=== PATIENT | female | born 1965 | race Caucasian/White ===

== ENCOUNTER 2017-07-14 17:00 | Observation (INO) | payer MEDICARE, OTHER ==
[~2017-07-14] VITALS: Ht 165.1 cm; Wt 80.0 kg
[2017-07-14 17:15] VITALS: BP 130/93; PULSE 81; RESP 16; TEMP 98; O2SAT 99
[2017-07-14] MEDS ORDERED: LEVO200T4 PO (17:25)
--- NOTE | 2017-07-14 17:38 | PD ---
HPI Chief Complaint: Chest Pain Time Seen by Provider: 17:38 Travel History International Travel<30 days: No Contact w/Intl Traveler<30days: No Traveled to known affect area: No History of Present Illness HPI 51-year-old female arrives via EMS with left-sided chest pain that radiated into her left arm and neck that started abruptly while at work. She said the pain was a 10 out of 10 and she has been administered aspirin and 3 doses of sublingual nitro with relief of her chest pain. She says her chest pain is now 0 out of 10. She did have shortness of breath with the chest pain. No shortness of breath now. She has never had chest pain like this before. She said the chest pain was in-stent like "she was punched in the back." Onset today. Lasted greater than 15 minutes. Relieved by nitroglycerin. Reports marijuana use occasionally. Denies other illicit drug use. Reports tobacco use. Primary CARE providers Dr. Cook. History of hypothyroidism and has not taken her levothyroxine in 10 days secondary to her doctor stopping not prescribing her medication secondary to her not having up-to-date labs. History of stress test 10 years ago. Allergies to vancomycin, cephalosporin and IV dye. Has no other medical complaints. No other modifying factors or associated signs and symptoms PFSH Past Medical History Chest Pain: Yes Diminished Hearing: No GERD: Yes Hypertension: Yes Kidney Stones: Yes Thyroid Disease: Yes ?: Not Past Surgical History Cholecystectomy: Yes Hysterectomy: Yes Other Surgery: Yes (OOPHERECTOMY, CERVICAL RIB RESECTION X 2, ) Social History Alcohol Use: Yes (OCC) Tobacco Use: Yes (1/2 PPD) Substance Use: No Allergies-Medications (Allergen,Severity, Reaction): Coded Allergies: Cephalosporins (Verified Allergy, Intermediate, HIVES, 07/14/17) vancomycin (Verified Allergy, Intermediate, RASH, 07/14/17) Uncoded Allergies: IVP DYE (Allergy, Severe, Anaphylaxis, 07/14/17) Reported Meds & Prescriptions Reported Meds & Active Scripts Active Reported Levothyroxine (Levothyroxine Sodium) 200 Mcg Tab 225 Mcg PO DAILY Review of Systems Except as stated in HPI: all other systems reviewed are Neg Physical Exam Narrative GENERAL: Well-nourished, well-developed femur patient, in no acute distress SKIN: Warm and dry. HEAD: Atraumatic. Normocephalic. EYES: Pupils equal and round. No scleral icterus. No injection or drainage. ENT: Mucosa pink and moist. NECK: Trachea midline. CHEST: No reproducible chest wall tenderness; no crepitance or deformity. No retractions or use of accessory muscles. CARDIOVASCULAR: Regular rate and rhythm. No murmur appreciated. RESPIRATORY: No accessory muscle use. Clear to auscultation. Breath sounds equal bilaterally. No retractions or tachypnea. GASTROINTESTINAL: Abdomen soft, non-tender, nondistended. Hepatic and splenic margins not palpable. Bowel sounds are active 4 quadrants. MUSCULOSKELETAL: No obvious deformities. No clubbing. No cyanosis. No edema. NEUROLOGICAL: Awake and alert. Oriented 3. No obvious cranial nerve deficits. Motor grossly within normal limits. Normal speech. Moves all extremities. 5/5 strength to all extremities. PSYCHIATRIC: Appropriate mood and affect; insight and judgment normal. Data Data Last Documented VS Vital Signs Date Time Temp Pulse Resp B/P (MAP) Pulse Ox O2 Delivery O2 Flow Rate FiO2 07/14/17 18:43 84 17 177/104 (128) 99 Nasal Cannula 2.00 07/14/17 17:15 98.0 Orders Orders Electrocardiogram (07/14/17 ) Electrocardiogram (07/14/17 17:37) Basic Metabolic Panel (Bmp) (07/14/17 17:37) Ckmb (Isoenzyme) Profile (07/14/17 17:37) Complete Blood Count With Diff (07/14/17 17:37) Magnesium (Mg) (07/14/17 17:37) Prothrombin Time / Inr (Pt) (07/14/17 17:37) Act Partial Throm Time (Ptt) (07/14/17 17:37) Troponin I (07/14/17 17:37) Ecg Monitoring (07/14/17 17:37) Bilateral Bp Monitoring (07/14/17 17:37) Iv Access Insert/Monitor (07/14/17 17:37) Oximetry (07/14/17 17:37) Oxygen Administration (07/14/17 17:37) Sodium Chloride 0.9% Flush (Ns Flush) (07/14/17 17:45) Chest, Pa & Lat (07/14/17 17:37) Drug Screen, Random Urine (07/14/17 17:52) CKMB (07/14/17 17:45) CKMB% (07/14/17 17:45) Admit Order (Ed Use Only) (07/14/17 18:38) Activity Bed Rest With Brp (07/14/17 18:38) Vital Signs (Adult) Q4H (07/14/17 18:38) Cardiac Rhythm .As Directed (07/14/17 18:38) Notify Dr: Other .PRN (07/14/17 18:38) Notify DrKim Parameters (07/14/17 18:38) Resp Oxygen Nasal Cannula (07/14/17 ) Ckmb (Isoenzyme) Profile (07/14/17 18:38) Ckmb (Isoenzyme) Profile (07/14/17 21:38) Troponin I (07/14/17 18:38) Troponin I (07/14/17 21:38) Electrocardiogram (07/14/17 18:38) Electrocardiogram (07/14/17 21:38) ^ Obtain (07/14/17 18:38) Sodium Chloride 0.9% Flush (Ns Flush) (07/14/17 18:45) Sodium Chloride 0.9% Flush (Ns Flush) (07/14/17 21:00) Window Unit Air Conditioning Mechanic / Telemetry DEVYN.Q8H (07/14/17 18:38) Morphine Inj (Morphine Inj) (07/14/17 18:45) Ondansetron Inj (Zofran Inj) (07/14/17 18:45) Labs Laboratory Tests Test 07/14/17 17:45 07/14/17 18:26 White Blood Count 9.8 TH/MM3 Red Blood Count 4.40 MIL/MM3 Hemoglobin 14.3 GM/DL Hematocrit 42.1 % Mean Corpuscular Volume 95.6 FL Mean Corpuscular Hemoglobin 32.4 PG Mean Corpuscular Hemoglobin Concent 33.9 % Red Cell Distribution Width 13.3 % Platelet Count 375 TH/MM3 Mean Platelet Volume 7.3 FL Neutrophils (%) (Auto) 54.4 % Lymphocytes (%) (Auto) 33.8 % Monocytes (%) (Auto) 8.1 % Eosinophils (%) (Auto) 2.5 % Basophils (%) (Auto) 1.2 % Neutrophils # (Auto) 5.4 TH/MM3 Lymphocytes # (Auto) 3.3 TH/MM3 Monocytes # (Auto) 0.8 TH/MM3 Eosinophils # (Auto) 0.2 TH/MM3 Basophils # (Auto) 0.1 TH/MM3 CBC Comment DIFF FINAL Differential Comment Prothrombin Time 10.5 SEC Prothromb Time International Ratio 1.0 RATIO Activated Partial Thromboplast Time 21.2 SEC Blood Urea Nitrogen 11 MG/DL Creatinine 1.18 MG/DL Random Glucose 88 MG/DL Calcium Level 7.8 MG/DL Magnesium Level 1.9 MG/DL Sodium Level 141 MEQ/L Potassium Level 4.1 MEQ/L Chloride Level 108 MEQ/L Carbon Dioxide Level 24.1 MEQ/L Anion Gap 9 MEQ/L Estimat Glomerular Filtration Rate 48 ML/MIN Total Creatine Kinase 197 U/L Creatine Kinase MB 2.7 NG/ML Creatine Kinase MB % 1.4 % Troponin I 0.03 NG/ML MDM Medical Decision Making Medical Screen Exam Complete: Yes Emergency Medical Condition: Yes Medical Record Reviewed: Yes Differential Diagnosis Atypical chest pain, [place], ACS, musculoskeletal chest pain, pleuritic chest pain Narrative Course 51-year-old female with chest pain that is non-reproducible on physical exam. Abrupt onset while at work today. Arrived via EMS. Was given nitroglycerin sublingual 3 and aspirin on route with relief of chest pain. Patient placed on cardiopulmonary monitor and oxygen administration. IV, CBC, BMP, troponin, CK-MB, magnesium, EKG, chest x-ray ordered. EKG reviewed by Dr. Navarro. 1840: CBC unremarkable. Coags unremarkable. Creatinine 1.18. GFR 48. Total CK 197. Troponin 0.03. Magnesium 1.9. Dr. Meraz reviewed labs, evaluated patient and recommends chest pain center admission. Patient admitted to chest pain center for observation to rule out cardiac etiology. Chest pain admission orders entered. Toxicology pending. Morphine ordered for onset of chest pain again. Physician Communication Physician Communication [facility] Diagnosis Primary Impression: Chest pain Qualified Codes: R07.9 - Chest pain, unspecified Admitting Information Admitting Physician Requests: Observation Suly Headley [facility] Jul 14, 2017 17:38
[2017-07-14 17:44] VITALS: O2SAT 100
[2017-07-14] MEDS ORDERED: SODIUM CHLORIDE 0.9% FLUSH 10 ML FLUSH IVF PRN (17:45)
[2017-07-14 18:07] LABS: AUTOMATED NEUTROPHIL # 5.4 TH/MM3 (1.8-7.7); BASOPHIL # 0.1 TH/MM3 (0-0.2); BASOPHIL % 1.2 % (0.0-2.0); EOSINOPHIL # 0.2 TH/MM3 (0-0.4); EOSINOPHIL % 2.5 % (0.0-4.0); HEMATOCRIT 42.1 % (35.0-46.0); HEMOGLOBIN 14.3 GM/DL (11.6-15.3); LYMPH % 33.8 % (9.0-44.0); LYMPHOCYTE # 3.3 TH/MM3 (1.0-4.8); MEAN CELL VOLUME 95.6 FL (80.0-100.0); MEAN CORPUSCULAR HEMOGLOBIN 32.4 PG (27.0-34.0); MEAN CORPUSCULAR HGB CONC 33.9 % (32.0-36.0); MEAN PLATELET VOLUME 7.3 FL (7.0-11.0); MONO % 8.1 % (0.0-8.0); MONOCYTE # 0.8 TH/MM3 (0-0.9); NEUT % 54.4 % (16.0-70.0); PLATELET COUNT 375 TH/MM3 (150-450); RED CELL DISTRIBUTION WIDTH 13.3 % (11.6-17.2); WHITE BLOOD COUNT 9.8 TH/MM3 (4.0-11.0)
--- NOTE | 2017-07-14 18:14 | RADRPT ---
EXAM DATE/TIME: 07/14/2017 17:55 [place] COMPARISON: No previous studies available for comparison. INDICATIONS : Cough and shortness of breath with chest tightness. MEDICAL HISTORY : None. SURGICAL HISTORY : None. ENCOUNTER: Initial ACUITY: 1 week PAIN SCORE: 04/13 LOCATION: Bilateral chest FINDINGS: PA and lateral views of the chest demonstrate the lungs to be symmetrically aerated without evidence of mass, infiltrate or effusion. The cardiomediastinal contours are unremarkable. Osseous structure s are intact. There are multiple overlying electrical leads. CONCLUSION: No acute disease. There is no evidence of pneumonia. Sanjeev Beltran MD on July 14, 2017 at 18:11 Board Certified Radiologist. This report was verified electronically.
[2017-07-14 18:27] LABS: CREATININE 1.18 MG/DL (0.50-1.00); TROPONIN I 0.03 NG/ML (0.02-0.05)
[2017-07-14 18:28] LABS: BICARBONATE 24.1 MEQ/L (21.0-32.0); CALCIUM 7.8 MG/DL (8.5-10.1); MAGNESIUM 1.9 MG/DL (1.5-2.5)
[2017-07-14 18:29] LABS: PROTHROMBIN TIME - PATIENT 10.5 SEC (9.8-11.6)
[2017-07-14] MEDS ORDERED: IOHEXOL 350 MG/ML 100 ML BTL (for Cath Lab) OTHER ONE (18:41)
[2017-07-14 18:43] VITALS: BP 177/104; PULSE 84; RESP 17; O2SAT 99
[2017-07-14] MEDS ORDERED: ONDANSETRON HCL 4 MG/2 ML VIAL IV PUSH ONE (18:45)
[2017-07-14] MEDS ORDERED: MORPHINE SULFATE 4 MG/ML INJ IV PUSH ONE (18:45)
[2017-07-14] MEDS ORDERED: SODIUM CHLORIDE 0.9% FLUSH 10 ML FLUSH IV FLUSH PRN (18:45)
--- NOTE | 2017-07-14 18:45 | PD ---
Data Data Last Documented VS Vital Signs Date Time Temp Pulse Resp B/P (MAP) Pulse Ox O2 Delivery O2 Flow Rate FiO2 07/14/17 17:44 100 Room Air 07/14/17 17:15 98.0 81 16 130/93 (105) Orders Orders Electrocardiogram (07/14/17 ) Electrocardiogram (07/14/17 17:37) Basic Metabolic Panel (Bmp) (07/14/17 17:37) Ckmb (Isoenzyme) Profile (07/14/17 17:37) Complete Blood Count With Diff (07/14/17 17:37) Magnesium (Mg) (07/14/17 17:37) Prothrombin Time / Inr (Pt) (07/14/17 17:37) Act Partial Throm Time (Ptt) (07/14/17 17:37) Troponin I (07/14/17:37) Ecg Monitoring (07/14/17 17:37) Bilateral Bp Monitoring (07/14/17 17:37) Iv Access Insert/Monitor (07/14/17 17:37) Oximetry (07/14/17 17:37) Oxygen Administration (07/14/17 17:37) Sodium Chloride 0.9% Flush (Ns Flush) (07/14/17 17:45) Chest, Pa & Lat (07/14/17 17:37) Drug Screen, Random Urine (07/14/17 17:52) CKMB (07/14/17 17:45) CKMB% (07/14/17 17:45) Admit Order (Ed Use Only) (07/14/17 18:38) Activity Bed Rest With Brp (07/14/17 18:38) Vital Signs (Adult) Q4H (07/14/17 18:38) Cardiac Rhythm .As Directed (07/14/17 18:38) Notify Dr: Other .PRN (07/14/17 18:38) Notify . Parameters (07/14/17 18:38) Resp Oxygen Nasal Cannula (07/14/17 ) Ckmb (Isoenzyme) Profile (07/14/17 18:38) Ckmb (Isoenzyme) Profile (07/14/17 21:38) Troponin I (07/14/17 18:38) Troponin I (07/14/17 21:38) Electrocardiogram (4/12/18 18:38) Electrocardiogram (07/14/17 21:38) ^ Obtain (07/14/17 18:38) Sodium Chloride 0.9% Flush (Ns Flush) (07/14/17 18:45) Sodium Chloride 0.9% Flush (Ns Flush) (07/14/17 21:00) [employer] Service Captain / Telemetry DEVYN.Q8H (07/14/17 18:38) Labs Laboratory Tests Test 07/14/17 17:45 07/14/17 18:26 White Blood Count 9.8 TH/MM3 Red Blood Count 4.40 MIL/MM3 Hemoglobin 14.3 GM/DL Hematocrit 42.1 % Mean Corpuscular Volume 95.6 FL Mean Corpuscular Hemoglobin 32.4 PG Mean Corpuscular Hemoglobin Concent 33.9 % Red Cell Distribution Width 13.3 % Platelet Count 375 TH/MM3 Mean Platelet Volume 7.3 FL Neutrophils (%) (Auto) 54.4 % Lymphocytes (%) (Auto) 33.8 % Monocytes (%) (Auto) 8.1 % Eosinophils (%) (Auto) 2.5 % Basophils (%) (Auto) 1.2 % Neutrophils # (Auto) 5.4 TH/MM3 Lymphocytes # (Auto) 3.3 TH/MM3 Monocytes # (Auto) 0.8 TH/MM3 Eosinophils # (Auto) 0.2 TH/MM3 Basophils # (Auto) 0.1 TH/MM3 CBC Comment DIFF FINAL Differential Comment Prothrombin Time 10.5 SEC Prothromb Time International Ratio 1.0 RATIO Activated Partial Thromboplast Time 21.2 SEC Blood Urea Nitrogen 11 MG/DL Creatinine 1.18 MG/DL Random Glucose 88 MG/DL Calcium Level 7.8 MG/DL Magnesium Level 1.9 MG/DL Sodium Level 141 MEQ/L Potassium Level 4.1 MEQ/L Chloride Level 108 MEQ/L Carbon Dioxide Level 24.1 MEQ/L Anion Gap 9 MEQ/L Estimat Glomerular Filtration Rate 48 ML/MIN Total Creatine Kinase 197 U/L Creatine Kinase MB 2.7 NG/ML Creatine Kinase MB % 1.4 % Troponin I 0.03 NG/ML MDM Supervised Visit with JOSEFINA: Yes Narrative Course I, Dr. Navarro, have reviewed the advance practice practitioner's documentation and am in agreement, met with the patient face to face, made the diagnosis, and the medical decision making was done by me. *My assessment and Findings: Patient has atypical pain. Feels like a fist pressing on her left upper back and left upper chest. It is not pleuritic. It is not obviously musculoskeletal. There is no reproducible tenderness or change of movement of her shoulder or neck. Her last stress test was 10 years ago. Cardiac enzymes are normal. Her EKG does show sinus rhythm with some T wave inversion diffusely her there are no priors to compare. There is no ST elevation. She will be a telemetry observation in the chest pain center to rule out cardiac cause of her symptoms. Jayesh Navarro MD Jul 14, 2017 18:45
[2017-07-14 20:41] VITALS: BP 169/91; PULSE 88; RESP 18; TEMP 97.4; O2SAT 97
[2017-07-14 21:58] LABS: TROPONIN I 0.06 NG/ML (0.02-0.05)
[2017-07-14] MEDS: SODIUM CHLORIDE 0.9% FLUSH 10 ML FLUSH IV FLUSH SCH (23:42)
[2017-07-15] VITALS (14 sets, daily range): BP systolic 136–160; BP diastolic 75–92; PULSE 66–104; RESP 16–20; TEMP 97.9–98.7; O2SAT 95–100
[2017-07-15 00:22] LABS: TROPONIN I 0.05 NG/ML (0.02-0.05)
--- NOTE | 2017-07-15 07:43 | HHI.HP ---
[facility] Primary Care Physician Dr. Faust Chief Complaint Chest pain History of Present Illness 51-year-old female with history of hypothyroidism and current smoker presents the emergency room for further evaluation of chest pain. Onset yesterday 4 p.m.. Discomfort began in left scapula area, immediately radiating to left anterior chest and left upper arm. Discomfort began suddenly. Characterized as "being punched." Severity 10/10. Associated symptoms including feeling "clammy." No associated symptoms of nausea, vomiting, or dyspnea. Denies similar pain in the past. Discomfort lasted 15-20 minutes before calling EMS. EMS gave her 4 low dose aspirins and x3 SL nitro tablets, reporting discomfort subsided prior to arrival to ER. Experienced one additional chest pain episode while in ER, lasting 5 minutes and not as severe as first episode. States by the time she notified RN and ER MD assessed her, discomfort resolved. No known precipitating factors. Possible relieving factor of aspirin and nitro given in route. Currently is chest pain free, denying any further chest pain episode. She is concerned discomfort related to running out of her thyroid medications 10 days ago. Review of Systems General: No fatigue,weakness, fever, chills, recent illness, or change in appetite. Has been in her general state of health. [place] for levothyroxine 10 days ago. HEENT: No ALBA, no vision changes, no nasal congestion or drainage, no dysphasia, history of GERD CV: As stated above. Currently chest pain-free. No palpitations or dizziness RESP: No SOB, cough, wheeze, or recent URI. Current smoker. GI: No nausea, vomiting, bowel changes, diarrhea, constipation, pain, distention , melena, or blood in the stool. : No dysuria, urgency, or frequency. History of kidney stones EXT: No lower leg edema, no paraesthesias MS: No discomfort, injury, trauma, or change in ROM NEURO: No LOC, motor/sensory deficits PSYCH: No anxiety, depression SKIN: No rashes, no concerning lesions Past Family Social History Allergies: Coded Allergies: Cephalosporins (Verified Allergy, Intermediate, HIVES, 07/14/17) vancomycin (Verified Allergy, Intermediate, RASH, 07/14/17) Uncoded Allergies: IVP DYE (Allergy, Severe, Anaphylaxis, 07/14/17) Past Medical History Hypothyroidism, GERD, renal calculi Past Surgical History Hysterectomy, oophorectomy, x3 left knee replacements reportedly due to chronic knee infection Reported Medications Reported Meds & Active Scripts Active Reported Levothyroxine (Levothyroxine Sodium) 200 Mcg Tab 225 Mcg PO DAILY Active Ordered Medications Current Medications Medications (Trade) Dose Ordered Sig/Cong Route Start Time Stop Time Status Last Admin (NS Flush) 2 ml UNSCH PRN IVF 07/14/17 17:45 (NS Flush) 2 ml UNSCH PRN IV FLUSH 07/14/17 18:45 (NS Flush) 2 ml BID IV FLUSH 07/14/17 21:00 07/14/17 23:42 Family History Noncontributory for early onset cardiovascular disease Social History No known CAD, diabetes, hypertension, or hyperlipidemia. Lifelong smoker, between 1/2-1 pack/daily. Alcohol socially. Rare marijuana use. 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 Past cardiac testing Remote exercise cardiac testing and echocardiogram 10 years ago, all reported to be unremarkable. Physical Exam Vital Signs Vital Signs Date Time Temp Pulse Resp B/P (MAP) Pulse Ox O2 Delivery O2 Flow Rate FiO2 07/15/17 04:40 97.9 66 18 136/75 (95) 96 07/15/17 02:48 99 Nasal Cannula 2.00 07/15/17 00:00 98.0 89 20 145/85 (105) 99 07/14/17 20:41 97.4 88 18 169/91 (117) 97 07/14/17 19:50 07/14/17 18:43 84 17 177/104 (128) 99 Nasal Cannula 2.00 07/14/17 17:44 100 Room Air 07/14/17 17:15 98.0 81 16 130/93 (105) 99 Physical Exam GENERAL: Alert WN, WD, NAD, pleasant, female HEAD: NC, AT EYES: Sclera clear, conjunctiva without injection, pupils equal and round ENT: Mucous membranes pink and moist NECK: Supple, no masses, trachea midline CV: RRR, without murmur, rub, gallop, no JVD, S1-S2 no S3-S4. Chest wall nontender with palpation. RESP: Diminished lungs throughout bilateral, no crackles, wheeze, rhonchi, symmetrical chest rise, nonlabored, able to speak in full sentences ABD: Soft, NT, ND, no masses, positive bowel tones EXT: Pulses +2x4, no dependent edema MS: Normal tone x4 extremities, left shoulder nontender with palpation and passive ROM, no obvious deformities, full range of motion NEURO: CN II through CN XII grossly intact, motor strength 5/5, gait WNL PSYCH: A+O x3, pleasant affect, appropriate speech, mood, insight and judgment SKIN: Normal turgor, normal texture, no lesions, no rashes, multiple tattoos, lip pierced Laboratory Laboratory Tests Test 07/14/17 17:45 07/14/17 18:26 07/14/17 20:50 07/14/17 23:40 White Blood Count 9.8 Red Blood Count 4.40 Hemoglobin 14.3 Hematocrit 42.1 Mean Corpuscular Volume 95.6 Mean Corpuscular Hemoglobin 32.4 Mean Corpuscular Hemoglobin Concent 33.9 Red Cell Distribution Width 13.3 Platelet Count 375 Mean Platelet Volume 7.3 Neutrophils (%) (Auto) 54.4 Lymphocytes (%) (Auto) 33.8 Monocytes (%) (Auto) 8.1 Eosinophils (%) (Auto) 2.5 Basophils (%) (Auto) 1.2 Neutrophils # (Auto) 5.4 Lymphocytes # (Auto) 3.3 Monocytes # (Auto) 0.8 Eosinophils # (Auto) 0.2 Basophils # (Auto) 0.1 CBC Comment DIFF FINAL Differential Comment Prothrombin Time 10.5 Prothromb Time International Ratio 1.0 Activated Partial Thromboplast Time 21.2 Blood Urea Nitrogen 11 Creatinine 1.18 Random Glucose 88 Calcium Level 7.8 Magnesium Level 1.9 Sodium Level 141 Potassium Level 4.1 Chloride Level 108 Carbon Dioxide Level 24.1 Anion Gap 9 Estimat Glomerular Filtration Rate 48 Total Creatine Kinase 197 198 166 Creatine Kinase MB 2.7 2.6 2.7 Creatine Kinase MB % 1.4 1.3 Troponin I 0.03 0.06 0.05 Urine Opiates Screen NEG Urine Barbiturates Screen NEG Urine Amphetamines Screen NEG Urine Benzodiazepines Screen NEG Urine Cocaine Screen NEG Urine Cannabinoids Screen NEG Result Diagram: 07/14/17 1745 07/14/17 1743 Imaging Last 48 hours Impressions Chest X-Ray 07/14/17 6847 Signed Impressions: Service Date/Time: July 17:55 - CONCLUSION: No acute disease. There is no evidence of pneumonia. Sanjeev Beltran MD Course EKG 1st EKG-NSR, normal axis, slight t wave anterolaterally 2nd EKG-NSR, t wave inversion more pronounced V-3 V4 3rd EKG-NSR, with PVC, t wave inversion more pronounce V3-V6 Caprini VTE Risk Assessment Caprini VTE Risk Assessment: No/Low Risk (score <= 1) Caprini Risk Assessment Model Point Value = 1 Point Value = 2 Point Value = 3 Point Value = 5 Age 41-60 Minor surgery BMI > 25 kg/m2 Swollen legs Varicose veins or History of unexplained or recurrent spontaneous Oral contraceptives or hormone replacement Sepsis (< 1 month) Serious lung disease, including pneumonia (< 1 month) Abnormal pulmonary function Acute myocardial infarction Congestive heart failure (< 1 month) History of inflammatory bowel disease Medical patient at bed rest Age 61-74 Arthroscopic surgery Major open surgery (> 45 min) Laparoscopic surgery (> 45 min) Malignancy Confined to bed (> 72 hours) Immobilizing plaster cast Central venous access Age >= 75 History of VTE Family history of VTE Factor V Leiden Prothrombin [id number] Lupus anticoagulant Anticardiolipin antibodies Elevated serum homocysteine Heparin-induced thrombocytopenia Other congenital or acquired thrombophilia Stroke (< 1 month) Elective arthroplasty Hip, pelvis, or leg fracture Acute spinal cord injury (< 1 month) Prophylaxis Regimen Total Risk Factor Score Risk Level Prophylaxis Regimen 0-1 Low Early ambulation 2 Moderate Order ONE of the following: *Sequential Compression Device (SCD) *Heparin 5000 units SQ BID 3-4 Higher Order ONE of the following medications: *Heparin 5000 units SQ TID *Enoxaparin/Lovenox 40 mg SQ daily (WT < 150 kg, CrCl > 30 mL/min) *Enoxaparin/Lovenox 30 mg SQ daily (WT < 150 kg, CrCl > 10-29 mL/min) *Enoxaparin/Lovenox 30 mg SQ BID (WT < 150 kg, CrCl > 30 mL/min) AND/OR *Sequential Compression Device (SCD) 5 or more Highest Order ONE of the following medications: *Heparin 5000 units SQ TID (Preferred with Epidurals) *Enoxaparin/Lovenox 40 mg SQ daily (WT < 150 kg, CrCl > 30 mL/min) *Enoxaparin/Lovenox 30 mg SQ daily (WT < 150 kg, CrCl > 10-29 mL/min) *Enoxaparin/Lovenox 30 mg SQ BID (WT < 150 kg, CrCl > 30 mL/min) AND *Sequential Compression Device (SCD) Assessment and Plan Assessment and Plan #1 Chest pain-admitted to chest pain center. ASC protocol completed overnight. Mildly elevated troponin's of 0.03, 0.06, and 0.05. EKGs T wave inversion, appearing to become more pronounced with subsequent EKGs. Seen and evaluated by Dr. Barbie Hogan. Discussed in length laboratory and EKG findings with patient in length. Made aware call will be placed to on-call physician for further recommendation, including a possible cardiac catheterization. Risks of cardiac catheterization given by Dr. Hogan. Patient verbalized understanding and agrees for cardiac catheterization if recommended by on-call bottling equipment sales representative. Patient instructed to remain NPO status until further notice. #2 Tobacco use-strongly encouraged and stressed the importance of tobacco cessation. Instructed to quit smoking. #3 Hypothyroidism-TSH now, continue levothyroxine, discussed importance of never running out of thyroid medication, verbalized understanding. 0800 Spoke with on-call physician, Dr. Toribio, regarding patient's presenting symptoms, mildly elevated troponin's which are indeterminate, and EKG T wave inversion progression. Dr. Toribio will evaluated patient for further recommendation for possible cardiac catheterization. Discussed with RN. 0915 Dr. Toribio evaluated patient. Recommends cardiac catheterization today. Discussed with patient. RN notified of plan of care. Nani Rousseau Jul 15, 2017 07:43
[2017-07-15] MEDS: LEVOTHYROXINE SODIUM 200 MCG TAB PO SCH (09:00)
[2017-07-15] MEDS: LEVOTHYROXINE SODIUM 25 MCG TAB PO SCH (09:00)
[2017-07-15] MEDS ORDERED: LEVOTHYROXINE SODIUM 200 MCG TAB PO SCH (09:00)
[2017-07-15] MEDS: SODIUM CHLORIDE 0.9% FLUSH 10 ML FLUSH IV FLUSH SCH ×2 (09:00→22:19)
[2017-07-15] MEDS ORDERED: NITROGLYCERIN 0.4 MG SL 25 TABS/BTL SL PRN (09:15)
[2017-07-15] MEDS ORDERED: ACETAMINOPHEN 500 MG CPLT PO PRN (09:15)
[2017-07-15] MEDS ORDERED: ONDANSETRON HCL 4 MG/2 ML VIAL IV PUSH PRN ×2 (09:15→11:45)
[2017-07-15 09:20] LABS: TROPONIN I LESS THAN 0.02 NG/ML (0.02-0.05)
[2017-07-15] MEDS ORDERED: HEPARIN-NS/PF FLUSH BAG 2,000 ML IV FLUSH ONE (09:31)
[2017-07-15] MEDS ORDERED: diphenhydrAMINE HCL 50 MG/ML VIAL ONE (09:31)
[2017-07-15] MEDS ORDERED: methylPREDNISolone SOD SUCC 125 MG/2 ML VIAL ONE (09:31)
[2017-07-15] MEDS ORDERED: FAMOTIDINE 20 MG/2 ML VIAL ONE (09:31)
[2017-07-15] MEDS ORDERED: MIDAZOLAM HCL 2 MG/2 ML VIAL ONE ×2 (09:32→10:34)
[2017-07-15] MEDS ORDERED: VERAPAMIL HCL 5 MG/2 ML VIAL ONE (09:32)
[2017-07-15] MEDS ORDERED: NITROGLYCERIN INJ 5 ML ONE (09:32)
[2017-07-15] MEDS ORDERED: HEPARIN SODIUM - IV 10,000 UNITS/10 ML VIAL ONE ×2 (09:32→10:45)
--- NOTE | 2017-07-15 10:13 | MB ---
cc: Randy Toribio MD DATE: 07/15/2017 REASON FOR CONSULTATION: Abnormal troponin levels, abnormal EKGs. HISTORY OF PRESENT ILLNESS: The patient is a 51-year-old white female with a history of gastroesophageal reflux disease, hypothyroidism, nephrolithiasis, tobacco abuse, who was in her usual state of health up until 4 p.m. yesterday when she suddenly experienced left scapular pain, as if "somebody punched her in the back." The pain radiated to her left upper chest and lasted about 1/2 hour. There was no associated shortness of breath, nausea or diaphoresis. She became concerned, so she went to the emergency department where she had a recurrence of the same exact discomfort two hours later, this time lasting only a few minutes. This time, the chest and back discomfort radiated to her left neck and left upper arm. Serial EKGs and cardiac enzymes have been found to be abnormal. She denies pleurisy, dizziness, syncope, near syncope, palpitations, pedal edema, leg pain, paroxysmal nocturnal dyspnea. PAST MEDICAL HISTORY: 1. Gastroesophageal reflux disease. 2. Nephrolithiasis. 3. Hypothyroidism. PAST SURGICAL HISTORY: 1. Hysterectomy and oophorectomy. 2. Cholecystectomy. 3. A number of orthopedic surgeries including removal of a cervical rib for thoracic outlet syndrome on the right, labrum surgery on her left hip. CARDIAC MEDICATIONS AT HOME: None. ALLERGIES: CEPHALOSPORINS, IV DYE, VANCOMYCIN. FAMILY HISTORY: There is no significant family history of early myocardial infarction. SOCIAL HISTORY: The patient smokes about 1/2 to a pack of cigarettes per day. She denies alcohol or drug abuse. REVIEW OF SYSTEMS: As in history of present illness, otherwise negative or noncontributory. She also denies headache, abdominal pain, melena, bright red blood per rectum, wheezing, cough, flu symptoms. Occasionally, she experiences dyspepsia. PHYSICAL EXAMINATION: VITAL SIGNS: Her blood pressure 144/82 with a pulse of 67, respirations 18. GENERAL: She is a well-developed, well-nourished white female, in no acute distress. HEENT/NECK: Jugular venous pressure is normal. Carotid pulses are 2+ bilaterally and without bruits. CHEST: Reveals clear lungs escoto. CARDIAC: She has a regular rhythm and rate without S3, S4, or murmur. ABDOMEN: She has a soft, obese, nontender abdomen. Bowel sounds are present. There is no definite hepatosplenomegaly. EXTREMITIES: Reveals no clubbing, cyanosis or edema. Peripheral pulses are normal throughout. LABORATORY DATA: EKG from 07/14/2017 at 5:36 p.m. shows sinus rhythm, anterior and high lateral T-wave inversion, consider ischemia. Subsequent EKGs have revealed more prominent T-wave inversion. LABORATORY DATA: Normal CBC. Potassium 4.1, BUN 11, creatinine 1.18. CK 198 with 1.3% MB fraction. Troponin 0.06. TSH greater than 100. X-RAYS: Chest x-ray shows no acute disease. IMPRESSION: Overall very atypical symptoms for myocardial ischemia, although with progressively worsening electrocardiogram changes and slightly abnormal troponin levels in this 51-year-old white female with a history of gastroesophageal reflux disease, hypothyroidism, nephrolithiasis. Her symptoms seem to originate more in her left upper back, although they do involve her left chest area. Her last episode did radiate to her left neck and left arm, somewhat more suggestive of myocardial ischemia. Electrocardiograms show progressively worsening anterior and high lateral T-wave inversion. At this point, I would recommend cardiac catheterization given the instability of her symptoms and the abnormal EKGs. The nature of this procedure and potential risks including, but not limited to , myocardial infarction, stroke, arrhythmia, bleeding, infection, and renal failure have been outlined to the patient. She agrees to proceed. RECOMMENDATIONS: 1. Cardiac catheterization today. 2. If no high-grade coronary artery disease is seen, consider ruling out pulmonary embolism. MD STEPHEN Keene/NATHAN , 09:24 AM , 10:12 AM [place]
[2017-07-15] MEDS ORDERED: SODIUM CHLOR 0.9% 1000 ML INJ 1,000 ML IV ONE (10:45)
[2017-07-15] MEDS ORDERED: ADENOSINE STRESS TEST INJ 90 MG/30 ML VIAL ONE (10:58)
[2017-07-15] MEDS ORDERED: hydrALAZINE HCL 20 MG/ML VIAL ONE (11:24)
[2017-07-15] MEDS ORDERED: SODIUM CHLOR 0.9% 250 ML INJ 250 ML IV PRN (11:30)
--- NOTE | 2017-07-15 11:43 | MA ---
cc: Randy Toribio MD DATE: 07/15/2017 PROCEDURE: Left heart catheterization, selective coronary angiography, left ventriculography, instant wave-free ratio (IFR) and fractional flow reserve (FFR) measurement of the LAD, instant wave-free ratio measurement of the left circumflex. PROCEDURE NOTE: The patient was brought to the cardiac catheterization laboratory in a fasting state after having signed informed consent. The right radial region was prepped and draped as per policy and anesthetized with 1% lidocaine. Arterial access was obtained via the right radial artery and a 6-Sudanese sheath placed. Because of difficulties engaging the left main from the right radial approach (all catheters, including Amplatz left 1.0, Génesis left 3.5, [place]), would persistently engage the right coronary. We decided to do the rest of the case via right femoral artery approach. Arterial access was obtained via the right femoral artery and a 6-Sudanese sheath placed. Coronary arteriography of the left system was done using a 6-Sudanese Génesis left 4.0 catheter. Left ventriculography was done using a multipurpose catheter. IFR and FFR measurements were done as described below. There were no apparent, immediate complications. Her femoral arteriotomy site was closed with VASCADE. A radial artery compression band was applied to her right wrist at the end of the case to achieve good hemostasis of the right radial arteriotomy site. HEMODYNAMIC DATA: Left ventricle 180 with an end diastolic pressure of 10, aorta 184/103 with a mean of 139. There was no significant transvalvular aortic gradient on pullback of the pigtail catheter. CORONARY ARTERIOGRAPHY: The left main has 20% stenosis at its very distal end. The left anterior descending has an approximately 50% ostial stenosis. There are minimal luminal irregularities of the proximal LAD. The mid to distal LAD is angiographically normal. The LAD gives rise to a medium size diagonal which has minimal ostial and very proximal disease. The left circumflex is a small to medium size vessel which has diffuse ostial to proximal disease resulting in up to 50% stenosis. The mid left circumflex has a 20 percent stenosis. The obtuse marginals, which are relatively small, are free of disease. The right coronary artery is a large, dominant vessel with diffuse mid disease resulting in up to 30 percent stenosis. The right coronary has an anterior takeoff. LEFT VENTRICULOGRAPHY: Contrast injection of the left ventricle reveals no definite segmental wall motion abnormalities. Ejection fraction is estimated at 60 percent. IFR AND FFR MEASUREMENTS: Due to the patient's markedly abnormal EKG, escalating symptoms, borderline nature of the ostial LAD and ostial left circumflex disease, it was decided to perform additional hemodynamic measurements. Adequate heparin was given to achieve an ACT greater than 250 seconds. Using a 6-Sudanese XB 3.5 guiding catheter, the ostium of the left main was reengaged. A MitrAssist pressure wire was advanced into the left main and normalized. It was then advanced past the ostial LAD disease. IFR measurement in this region was 0.87, which was felt to be borderline significant. Therefore, it was decided to perform an FFR measurement. Adenosine 140 mcg/kg per minute was infused over a 2.5 minute period. The fractional flow reserve was measured at 0.85. It was decided not to intervene on the ostial LAD disease. As the ostial to proximal left circumflex disease actually angiographically appeared slightly more prominent than the ostial LAD disease, it was decided to perform IFR measurement of the left circumflex. The IFR was measured at 0.98. LEFT VENTRICULOGRAPHY: Contrast injection of the left ventricle reveals no segmental wall motion abnormalities. Ejection fraction is estimated at 60 percent. CONCLUSIONS: 1. Mild to moderate 3-vessel coronary artery disease. 2. Right dominant system. 3. IFR and FFR measurements of the ostial LAD and ostial left circumflex overall showing absence of hemodynamically significant disease in these regions. 4. Normal left ventricular function with an estimated ejection fraction of 60 percent. MD STEPHEN Keene/BEATRICE , 11:20 AM , 11:42 AM [place]
--- NOTE | 2017-07-15 11:44 | CATHPROC ---
[facility] HIS Report Study Information Study Number Admission Scheduled Start Study Start [id number] Jul 14 2017 6:40PM 07/15/2017 Jul 15 2017 9:45AM [place] [facility] Cardiac Catheterization Admit Source Facility Department Emergency department [facility] - Produce Inspector Physician and Clinical Staff Initial Randy Geronimo Telecommunications Line Mechanic Selene Farley,[facility] Telecommunications Line Mechanic Mecca Hernandez,[place] Recorder Karen Ennis ,RT(R) ScrPura Davies,RT(R) (BS) Procedures Performed Procedure Location (Site) Vessel Name Coronary Angiograms LCA Left Coronary Coronary Angiograms RCA Right Coronary L Heart Cath Wire insertion Fem Art (right) Femoral Art Equipment Time Archery Equipment Hay Sorter Description Size Mfg Part Number Used/Scraped TRANSDUCER, TRUWAVE [id number] 09:54 [employer] * Used W/STOCKCOCK *[id number] 11:09 CARDIWeVorce MEDICAL VASCADE, FR6 CLOSURE SYSTEM FR 6\7 Used *[id number] INTRODUCER SET, 11:28 [employer] FR 5 [id number] *[id number] Used MICROPUNCTURE STIFF 534-545T *[id number] 534-618T *1630104 534-620T *3803770 534-642T *[id number] [id number] *3885716 844485 09:54 MALLINCKRODT SYRINGE, ANGIOMAT 150ML 150ML *[id number] Used 2SUB [employer]ix CONCEPT DRAPE, RADIAL FEMORAL FULL 09:54 * [id number] *[id number] Used DEVELOPMENT BODY [id number] 09:54 [employer] PACK, CCL CUSTOM * Used *[id number] 09:54 [employer] SUPPORT, ARTERIAL ADULT 67189 *[id number] Used [id number] 09:54 MEDLINE PACER PEN, SKIN DUAL W/ RULER * Used *[id number] BAND, RADIAL COMPRESSION TR [id number] 11:12 [employer] MEDICAL 24CM Used SHORT 24 *[id number] SHEATH, FR6 RADIAL PRELUDE 09:54 [employer] MEDICAL FR 6 [id number] Used EASE 11CM [id number] 10:36 [employer] MEDICAL SHEATH, FR6.5 PRELUDE 11CM FR 6.5 038ACT Used *[id number] 11:31 MD Revolution WIRE, 3MMJ .035 180CM 180CM Used *0825750 [id number] 11:31 MERIT [employer] WIRE, 3MMJ .035 180CM 180CM Used *2458733 [id number] 11:31 [employer] WIRE, 3MMJ .035 180CM 180CM Used *2321401 [id number] 10:19 [employer] WIRE, EXCHANGE 260CM 3MMJ 260CM Used *[id number] 09:54 [employer] WIRE, EXCHANGE 260CM 3MMJ 260CM Used *[id number] PROBE COVER, STERILE [id number] 10:06 [employer] MEDICAL * Used ULTRASOUND W/ GEL *8186097 [id number] 09:54 NAMIC MANIFOLD, 4 PORT * Used *2898872 09:54 [employer] OMNIPAQUE, 350 MG, 150ML 150ML [id number] Used [id number] 09:54 [facility] BLANKET,WARM AIR CCL * Used *[id number] CATHETER, FR5 OPTITORQUE [id number] 10:12 TERUM[employer] MEDICAL FR 5 Used RADIAL TIG 4.0 *4967983 [id number] 10:09 [employer] MEDICAL SHEATH, FR4 TERUMO (10CM) FR 4 Used *7764553 10:44 [employer] PRIME WIRE, VERRATA 185CM 185CM 73489 *5554186 Used 10:54 [employer] PRIME WIRE, VERRATA 185CM 185CM 21148 *2907394 Used Equipment Model, Serial, Lot Number and Expiration Data Description Model Number Serial Number Lot Number Expiration Date PRIME WIRE, VERRATA 185CM [id number] 06-01-2020 SHEATH, FR6.5 PRELUDE 11CM [id number] 04-03-2020 WIRE, EXCHANGE 260CM 3MMJ [id number] 06-01-2020 History: Allergies Allergy Reaction Cephalosporins HIVES vancomycin RASH IVP DYE Anaphylaxis History: Risk Factors Family History of Hypertension Dyslipidemia Previous LA Previous Heart Failure Premature CAD No No Yes No No Prior Valve Prior PCI Prior CABG Surgery No No No Cerebrovascular Peripheral Artery Chronic Lung On Dialysis Diabetes Disease Disease Disease No No No No No History: Other Disease Selection Items Gerd History: Other Current Smoker Method Packs a Day Years Used Pack Years Yes Cigarettes 1 34 34 Labs Hgb (g/dl) Hct (%) WBC (l/cumm) Platelets (thousands) 11.60-17.00 35.00-51.00 4.00-11.00 150.00-450.00 14.3 42.7 9.8 375 Glucose (mg/dl) BUN (mg/dl) Creatinine (mg/dl) BUN:Creatinine (1:x) 74.00-106.00 7.00-18.00 0.50-1.30 10.00-20.00 88 11 1.2 9.2 Na (meq/l) K (meq/l) 136.00-145.00 3.50-5.10 141 4.1 INR (PTT:PT) 0.90-1.10 1 Troponin I (ng/ml) CPK (u/l) CPK-MB (ng/ML) 0.02-0.05 26.00-308.00 0.50-3.60 0.05 166 Not Drawn Medication Medication Total Dose (Bolus/Oral) Medication Total Dosage/Unit 1% XYLOCAINE 25 mL BENADRYL 50 mg FENTANYL 75 mcg HEPARIN 5600 units HYDRALAZINE 10 mg PEPCID 20 mg RADIAL COCKTAIL 10 mL (Bolus) SOLU-MEDROL 125 mg VERSED 4 mg Medications (Bolus/Oral) Medication Time Given Dosage/Unit Administered By Reason SOLU-MEDROL 07/15/2017 9:52:00 AM 125 mg Selene Farley 125 mg SOLU-MEDROL given in lab by Selene Farley RN in Left Wrist via Peripheral IV. Ordered by Randy Johnston. BENADRYL 07/15/2017 9:53:00 AM 50 mg Selene Farley 50 mg BENADRYL given in lab by Selene Farley RN in Left Wrist via Peripheral IV. Ordered by Randy Toribio. PEPCID 07/15/2017 9:54:00 AM 20 mg Selene Fraley 20 mg PEPCID given in lab by Selene Farley RN in Left Wrist. Ordered by Randy Toribio. 1% XYLOCAINE 07/15/2017 10:09:10 AM 10 mL Randy Toribio 10 mL 1% XYLOCAINE given in lab by Randy Toribio in Right Radial via Subcutaneous. Ordered by John Toribio. VERSED 07/15/2017 10:09:16 AM 2 mg Selene Farley 2 mg VERSED given in lab by Selene Farley RN in Left Wrist via Peripheral IV. Ordered by Daniel Toribio. FENTANYL 07/15/2017 10:10:26 AM 50 mcg Selene Farley 50 mcg FENTANYL given in lab by Selene Farley RN in Left Wrist via Peripheral IV. Ordered by Randy Toribio. Ntg 200mcg Verapamil 2.5mg Heparin RADIAL COCKTAIL 07/15/2017 10:12:59 AM 5 mL (Bolus) Randy Toribio 2500U 5 mL (Bolus) RADIAL COCKTAIL given in lab by Randy Toribio in Right Radial via Radial. Using [Solution Name]. Ordered by Randy Toribio. Reason: Ntg 200mcg Verapamil 2.5mg Heparin 2500U. FENTANYL 07/15/2017 10:29:22 AM 25 mcg Selene Farley 25 mcg FENTANYL given in lab by Selene Farley RN in Left Wrist via Peripheral IV. Ordered by Randy Toribio. Ntg 200mcg Verapamil 2.5mg Heparin RADIAL COCKTAIL 07/15/2017 10:30:29 AM 5 mL (Bolus) Randy Toribio 3000U 5 mL (Bolus) RADIAL COCKTAIL given in lab by Randy Toribio in Right Radial via Radial. Using [Solution Name]. Ordered by Randy Toribio. Reason: Ntg 100mcg Verapamil 1.25mg Heparin 1250U. 1% XYLOCAINE 07/15/2017 10:34:32 AM 15 mL Randy Toribio 15 mL 1% XYLOCAINE given in lab by Randy Toribio in Right Groin via Subcutaneous. Ordered by Daniel Toribio. VERSED 07/15/2017 10:36:05 AM 2 mg Selene Farley 2 mg VERSED given in lab by Selene Farley RN in Left Wrist via Peripheral IV. Ordered by Daniel Toribio. HEPARIN 07/15/2017 10:46:43 AM 5600 units Selene Farley 5600 units HEPARIN given in lab by Selene Farley RN in Left Wrist via Peripheral IV. Ordered by Randy Johnston. HYDRALAZINE 07/15/2017 11:26:06 AM 10 mg Selene Farley 10 mg HYDRALAZINE given in lab by Selene Farley RN in Left Wrist via Peripheral IV. Ordered by Randy Bell. Medication (Drip) Medication Time Given Dosage/Unit Concentration/Unit Diluent (ml) Solution ADENOSINE DRIP 07/15/2017 11:05:22 AM 140 mcg/kg/min 90 mg 90 NaCl .9 140 mcg/kg/min ADENOSINE DRIP given in lab by Selene Farley, RN in Left Wrist via Peripheral IV. Pu mp/Drip Flow = 672 ml/hr using NaCl .9 with a concentration of 90 mg in 90 ml. Ordered by Randy Toribio. ADENOSINE DRIP 07/15/2017 11:07:53 AM 0 units/hr 0 D5W STOPPED 0 units/hr ADENOSINE DRIP STOPPED given in lab by Selene Farley, [place]. Pump/Drip Flow = 672 ml/hr usi ng D5W. Ordered by Randy Toribio. IV Solutions 07/15/2017 9:54:53 AM 50 mL (IV) NaCl .9 Patient arrived on IV Solutions in Left Wrist via Peripheral IV. Pump/Drip Flow using NaCl .9. Initial Case Assessment Cardiovascular HR Rhythm NIBP Chest Pain 74 sr 174/107 0 Edema Present Skin color Skin None Normal Warm Dry Circulatory - Right Pulses Dorsalis Pedis Femoral Radial 1 1 2 Scale (0,1,2,3,4,d) Circulatory - Left Pulses Dorsalis Pedis Femoral Radial 1 1 Scale (0,1,2,3,4,d) Circulatory - Lower Extremities Color Lower Right Color Lower Left Normal Normal Neurological State Oriented to time-place- Alert Moves all extremities person Respiration - General Respiration Rate SpO2 (%) (B/min) 10 99 Final Case Assessment Cardiovascular HR Rhythm NIBP Chest Pain 74 sr 174/107 0 Edema Present Skin color Skin None Normal Warm Dry Circulatory - Right Pulses Dorsalis Pedis Femoral Radial 1 1 2 Scale (0,1,2,3,4,d) Circulatory - Left Pulses Dorsalis Pedis Femoral Radial 1 1 Scale (0,1,2,3,4,d) Circulatory - Lower Extremities Color Lower Right Color Lower Left Normal Normal Neurological State Oriented to time-place- Alert Moves all extremities person Respiration - General Respiration Rate SpO2 (%) O2 (lpm) (B/min) 10 99 4 Chronological Log Time Study Chronological Log 9:45:00 Patient arrived via Bed. 9:45:01 Patient Name, D.O.B, / Armband Verified By R.N. 9:45:01 Consent signed by the physician and the patient and verified by the Produce Inspector staff. 9:52:00 125 mg SOLU-MEDROL given in lab by Selene Farley, [place] in Left Wrist via Peripheral IV. Ord ered by Randy Toribio. 9:53:00 50 mg BENADRYL given in lab by Selene Farley, [place] in Left Wrist via Peripheral IV. Ordered by Randy Toribio. 9:54:00 20 mg PEPCID given in lab by Selene Farley, [place] in Left Wrist. Ordered by Randy Toribio. 9:54:34 Pre-op and post- op instructions given; patient acknowledges understanding of instructions. 9:54:35 Verbal Stimulation=2 Physical Stimulation=2 Airway=2 Respiration=2 TOTAL=8. (0=absent, 1=li mited, 2=present) 9:54:42 Allens test performed on the right radial and ulnar artery. positive 9:54:46 Patient has been NPO for More than 6Hrs. 9:54:47 Skin Breakdown- none per patient 9:54:49 Patient Warmer Placed on the Table. 9:54:51 Michelle Prominences Protected 9:54:52 A # 20 IV was noted in the Wrist (left). Grade = 0 9:54:53 Patient arrived on IV Solutions in Left Wrist via Peripheral IV. Pump/Drip Flow using NaCl . 9. 9:54:53 History and physical on the chart or being dictated. Assessment: Initial Case, HR=74 BPM, Rhythm=sr, XAFT=469/107 mmhg, Chest Pain=0, Edema=None, Co lisandra=Normal, Skin = Warm, Dry Right Pulses: Louis Ped=1, Femoral=1, Radial=2 Left Pulses: Louis Ped=1, Femoral=1 9:54:54 Lower Right Extremities: Color=Normal Lower Left Extremities: Color=Normal Neurological: State=Alert, Ox3, LUND Respiration: Resp=10 B/min, SpO2=99 % Vitals capture started with the following parameters, Patient=Adult, Interval=5 min, Initial Pr nqsxvw=824 mmHg, 9:56:28 Deflation Rate=5 mmHg, Cuff placed on Unknown 9:57:38 HR=80 bpm, BLYG=324/107 mmhg, SpO2=98.0 %, Resp=9 B/min, Pain=0, Haris=10, Rebollar=2 10:00:44 Right Radial and groin(s) prepped with 2% chlorhexidine, and draped after a 3 min. waiting time. 10:00:44 paged 10:01:10 Reference ECG taken 10:01:52 MD responded 10:02:09 HR=77 bpm, UFXF=776/106 mmhg, SpO2=98.0 %, Resp=16 B/min, Pain=0, Haris=10, Rebollar=2 10:04:45 Pressure channel 1 zeroed. 10:05:18 MD arrived. 10:07:08 HR=71 bpm, PNPR=751/101 mmhg, SpO2=98.0 %, Resp=12 B/min, Pain=0, Haris=10, Rebollar=2 Time Out. Correct patient, correct procedure, correct physician, power injector loaded with con trast with surgical team 10:09:00 present. Time Out Concurred by MD and individual staff in procedure. 10:09:10 10 mL 1% XYLOCAINE given in lab by Randy Toribio in Right Radial via Subcutaneous. Ordered b y Randy Toribio. 10:09:16 2 mg VERSED given in lab by Selene Farley, [place] in Left Wrist via Peripheral IV. Ordered by Randy Toribio. 10:09:57 Case Start 10:10:26 50 mcg FENTANYL given in lab by Selene Farley, RN in Left Wrist via Peripheral IV. Ordere d by Randy Toribio. 10:10:34 Access site was Right Radial Artery. A SHEATH, FR6 RADIAL PRELUDE EASE 11CM FR 6 was advanced into the Radial (right) using the Perc utaneous 10:10:43 technique. A CATHETER, FR5 OPTITORQUE RADIAL TIG 4.0 FR 5 was advanced over a wire. OMNIPAQUE, 350 MG, 150 ML 150ML 10:12:04 was used for injections. 10:12:05 HR=86 bpm, NTJI=390/81 mmhg, SpO2=99.0 %, Resp=18 B/min, Pain=0, Haris=10, Erbollar=2 5 mL (Bolus) RADIAL COCKTAIL given in lab by Randy Toribio in Right Radial via Radial. Using [So lution Name]. Ordered 10:12:59 by Randy Toribio. Reason: Ntg 200mcg Verapamil 2.5mg Heparin 2500U. Recorded Pressure: Ao, HR=87, Condition=Condition 1 10:13:18 (Aorta) Ao 147/86/111 10:13:28 The RCA was injected and visualized at various angles. OMNIPAQUE, 350 MG, 150ML 150ML used . 10:15:11 Put on 4 of oxygen After removing the current catheter a JL 3.5 INFINITI CATHETER FR 6 was advanced over a WIRE, E XCHANGE 260CM 10:15:32 3MMJ 260CM. 10:17:02 HR=78 bpm, LZFV=447/96 mmhg, SpO2=98.0 %, Resp=16 B/min, Pain=0, Haris=10, Rebollar=2 After removing the current catheter a AL 1 INFINITI CATHETER FR 5 was advanced over a WIRE, EXC HANGE 260CM 10:19:32 3MMJ 260CM. 10:21:07 Catheter was removed A CATHETER, FR5 OPTITORQUE RADIAL TIG 4.0 FR 5 was advanced over a wire. OMNIPAQUE, 350 MG, 150 ML 150ML 10:21:09 was used for injections. 10:22:07 HR=73 bpm, TXUC=036/85 mmhg, SpO2=98.0 %, Resp=22 B/min, Pain=0, Haris=10, Rebollar=2 After removing the current catheter a AL 1 INFINITI CATHETER FR 5 was advanced over a WIRE, EXC HANGE 260CM 10:22:20 3MMJ 260CM. After removing the current catheter a JL 3.5 INFINITI CATHETER FR 6 was advanced over a WIRE, E XCHANGE 260CM 10:25:53 3MMJ 260CM. 10:27:08 HR=78 bpm, XURM=617/98 mmhg, SpO2=99.0 %, Resp=11 B/min, Pain=0, Haris=10, Rebollar=2 10:29:22 25 mcg FENTANYL given in lab by Selene Farley, RN in Left Wrist via Peripheral IV. Ordere d by Randy Toribio. 5 mL (Bolus) RADIAL COCKTAIL given in lab by Randy Toribio in Right Radial via Radial. Using [So lution Name]. Ordered 10:30:29 by Randy Toribio. Reason: Ntg 100mcg Verapamil 1.25mg Heparin 1250U. After removing the current catheter a CATHETER, FR5 OPTITORQUE RADIAL TIG 4.0 FR 5 was advanced over a WIRE, 10:30:55 EXCHANGE 260CM 3MMJ 260CM. 10:32:09 HR=77 bpm, TXTY=771/85 mmhg, SpO2=98.0 %, Resp=13 B/min, Pain=0, Haris=10, Rebollar=2 10:33:54 Catheter was removed 10:34:32 15 mL 1% XYLOCAINE given in lab by Randy Toribio in Right Groin via Subcutaneous. Ordered by Randy Toribio. 10:36:05 2 mg VERSED given in lab by Selene Farley, RN in Left Wrist via Peripheral IV. Ordered by Randy Toribio. 10:36:05 Access site was Right Femoral Artery. 10:36:30 A SHEATH, FR6.5 PRELUDE 11CM FR 6.5 was advanced into the Fem Art (right) using the Percuta neous technique. 10:37:10 HR=82 bpm, FDBI=857/104 mmhg, SpO2=93.0 %, Resp=15 B/min, Pain=0, Haris=10, Rebollar=2 A JL 4.0 INFINITI CATHETER FR 6 was advanced over a wire. OMNIPAQUE, 350 MG, 150ML 150ML was us ed for 10:37:24 injections. 10:38:17 The LCA was injected and visualized at various angles. OMNIPAQUE, 350 MG, 150ML 150ML used . 10:39:41 Catheter was removed A MPA-2 INFINITI CATHETER FR 6 was advanced over a wire. OMNIPAQUE, 350 MG, 150ML 150ML was use d for 10:40:29 injections. 10:42:07 HR=85 bpm, RRTN=735/113 mmhg, SpO2=93.0 %, Resp=15 B/min, Pain=0, Haris=10, Rebollar=2 Recorded Pressure: LV, HR=84, Condition=Condition 1 10:42:24 (Left Ventricle) LV 173/46/42 Recorded Pressure: LV, Ao, HR=84, Condition=Condition 1 10:42:54 (Left Ventricle) LV 156/9/25, (Aorta) Ao 184/103/139 After removing the current catheter a XB 3.5 GUIDE CATHETER FR 6 was advanced over a WIRE, EXCH NICOLASA 260CM 10:44:55 3MMJ 260CM. 10:46:43 5600 units HEPARIN given in lab by Selene Farley, [place] in Left Wrist via Peripheral IV. Ord ered by Randy Toribio. 10:47:10 HR=79 bpm, BNKX=607/92 mmhg, SpO2=95.0 %, Resp=18 B/min, Pain=0, Haris=10, Rebollar=2 10:48:11 Pressure channel 1 zeroed. 10:51:36 Pressure channel 1 zeroed. 10:52:13 HR=80 bpm, UOKV=606/76 mmhg, SpO2=97.0 %, Resp=16 B/min, Pain=0, Haris=10, Rebollar=2 10:54:41 Activated Clotting Time Drawn 10:54:45 Pressure channel 1 zeroed. 10:55:39 A PRIME WIRE, VERRATA 185CM 185CM was inserted via Fem Art (right). 10:57:10 HR=90 bpm, EQLN=852/83 mmhg, SpO2=96.0 %, Resp=14 B/min, Pain=0, Haris=10, Rebollar=2 10:58:31 Flow Wire was was placed in the LAD Prox. The FFR measures ~FFR~ percent. The IFR measures 0.87 Percent. 11:00:06 ACT (Normal Range 90-180) = 278 11:02:11 HR=80 bpm, OVVQ=395/91 mmhg, SpO2=96.0 %, Resp=15 B/min, Pain=0, Haris=10, Rebollar=2 140 mcg/kg/min ADENOSINE DRIP given in lab by Selene Farley, RN in Left Wrist via Peripheral IV. Pump/Drip Flow 11:05:22 = 672 ml/hr using NaCl .9 with a concentration of 90 mg in 90 ml. Ordered by Randy Toribio. 11:07:02 The PRIME WIRE, VERRATA 185CM 185CM was removed. 11:07:16 HR=82 bpm, HBRT=866/78 mmhg, SpO2=98.0 %, Resp=17 B/min, Pain=0, Haris=10, Rebollar=2 0 units/hr ADENOSINE DRIP STOPPED given in lab by Selene Farley, [place]. Pump/Drip Flow = 672 ml/ hr using D5W. 11:07:53 Ordered by Randy Toribio. 11:08:26 An injection in the Fem Art (right) was made through the SHEATH, FR6.5 PRELUDE 11CM FR 6.5. 11:08:30 Catheter was removed 11:08:36 VASCADE, FR6 CLOSURE SYSTEM FR 6\7 placement in the Fem Art (right) 11:11:04 Case End 11:12:11 HR=72 bpm, PUYC=366/74 mmhg, EsV6=925.0 %, Resp=14 B/min, Pain=0, Haris=10, Rebollar=2 Assessment: Final Case, HR=74 BPM, Rhythm=sr, YOCH=451/107 mmhg, Chest Pain=0, Edema=None, [place] r=Normal, Skin = Warm, Dry Right Pulses: Louis Ped=1, Femoral=1, Radial=2 Left Pulses: Louis Ped=1, Femoral=1 11:12:36 Lower Right Extremities: Color=Normal Lower Left Extremities: Color=Normal Neurological: State=Alert, Ox3, LUND Respiration: Resp=10 B/min, SpO2=99 %, O2=4 lpm 11:12:51 Catheter(s) removed without difficulty Radial Compression Device Used. 13 mLs of air placed in BAND, RADIAL COMPRESSION TR SHORT 24 24 CM. Affected 11:12:55 hand ~O2 SATURATION~ % O2 saturation. 11:13:06 Sterile dressing applied to site 11:13:06 No case complications noted. 11:13:07 Cine recording checked. 11:13:10 Bedside Report will be given. 11:13:14 A Left Heart Cath was performed. 11:17:47 HR=69 bpm, CPPN=188/98 mmhg, SpO2=92.0 %, Resp=13 B/min, Pain=0, Haris=10, Rebollar=2 11:22:16 HR=67 bpm, ERYH=890/106 mmhg, SpO2=98.0 %, Resp=17 B/min, Pain=0, Haris=10, Rebollar=2 11:24:50 Vitals capture stopped. Vitals capture started with the following parameters, Patient=Adult, Interval=3 min, Initial Pr lfqycm=016 mmHg, 11:24:58 Deflation Rate=5 mmHg, Cuff placed on Unknown 11:25:32 HR=72 bpm, ZUFJ=014/95 mmhg, SpO2=98.0 %, Resp=17 B/min, Pain=0, Haris=10, Rebollar=2 11:26:06 10 mg HYDRALAZINE given in lab by Selene Farley, RN in Left Wrist via Peripheral IV. Orde red by Randy Toribio. 11:28:36 HR=63 bpm, WYYZ=380/90 mmhg, SpO2=98.0 %, Resp=9 B/min, Pain=0, Haris=10, Rebollar=2 11:32:09 HR=70 bpm, KYVE=696/93 mmhg, SpO2=98.0 %, Resp=16 B/min, Pain=0, Haris=10, Rebollar=2 11:35:12 HR=76 bpm, DSYZ=842/96 mmhg, SpO2=99.0 %, Resp=18 B/min, Pain=0, Haris=10, Rebollar=2 11:38:12 HR=71 bpm, IDTZ=732/94 mmhg, SpO2=98.0 %, Resp=20 B/min, Pain=0, Haris=10, Rebollar=2 11:40:35 HR=72 bpm, ZQZM=256/74 mmhg, Resp=9 B/min, Pain=0, Haris=10, Rebollar=2 11:43:36 Vitals capture stopped. 11:43:46 Patient moved to [facility] End Study - Contrast Media Used In Study Contrast Total Opened (mL) Total Used (mL) Total Wasted (mL) Omnipaque 100 100 0 End Study - Maximum Contrast Load Max Contrast Load (mL) 333.3 End Study - Radiation Exposure Fluoro Time (minutes) 14.9 End Study - Sheaths Sheaths Pulled By Sheath Hold Time (min) Pura Johnson End Study - Patient Disposition Complications Transferred To Interventional Outcome No Telemetry Bed No attempt made
[2017-07-15] MEDS ORDERED: ATROPINE SULFATE 1 MG/ML VIAL IVP PRN (11:45)
--- NOTE | 2017-07-15 12:18 | HHI.PR ---
Subjective Remarks had cardiac cath earlier today. now with no chest pain or sob. d/w the RN at the bedside. Objective Vitals Vital Signs Date Time Temp Pulse Resp B/P (MAP) Pulse Ox O2 Delivery O2 Flow Rate FiO2 07/15/17 10:41 99 Nasal Cannula 2.00 07/15/17 08:08 98.1 67 18 144/82 (102) 97 07/15/17 04:40 97.9 66 18 136/75 (95) 96 07/15/17 02:48 99 Nasal Cannula 2.00 07/15/17 00:00 98.0 89 20 145/85 (105) 99 07/14/17 20:41 97.4 88 18 169/91 (117) 97 07/14/17 19:50 07/14/17 18:43 84 17 177/104 (128) 99 Nasal Cannula 2.00 07/14/17 17:44 100 Room Air 07/14/17 17:15 98.0 81 16 130/93 (105) 99 Result Diagram: 07/14/17 1745 07/14/17 1744 Imaging Last Impressions Chest X-Ray 07/14/177 Signed Impressions: Service Date/Time: July 17:55 - CONCLUSION: No acute disease. There is no evidence of pneumonia. Sanjeev Beltran MD Objective Remarks GENERAL: This is a well-nourished, well-developed patient, in no apparent distress. CARDIOVASCULAR: Regular rate and regular rhythm without murmurs, gallops, or rubs. RESPIRATORY: Clear to auscultation. Breath sounds equal bilaterally. No wheezes , rales, or rhonchi. GASTROINTESTINAL: Abdomen soft, non-tender, nondistended. Normal, active bowel sounds MUSCULOSKELETAL: Extremities without clubbing, cyanosis, or edema. NEURO: Alert & Oriented x4 to person, place, time, situation. Moves all ext x4 Procedures cardiac cath. Medications and IVs Inpatient Medications Acetaminophen (Tylenol) 500 mg Q4H PRN PO HEADACHE; Start 07/15/17 at 09:15 Aspirin (Aspirin) 325 mg DAILY PO ; Start 07/15/17 at 10:00 Atropine Sulfate (Atropine Inj) 1 mg ONCE PRN IVP VAGAL REPONSE; Start at 11:45; Stop 07/16/17 at 11:44 Levothyroxine Sodium (Synthroid) 200 mcg DAILY@0600 PO ; Start 07/15/17 at 09:00 Morphine Sulfate (Morphine Inj) 4 mg ONCE ONCE IV PUSH Last administered on 03/21at 19:11; Start 07/14/17 at 18:45; Stop 07/14/17 at 18:46; Status DC Nitroglycerin (Nitrostat Sl) 0.4 mg Q5M PRN SL CHEST PAIN; Start 07/15/17 at 09 :15 Ondansetron HCl (Zofran Inj) 4 mg ONCE PRN IV PUSH NAUSEA; Start 07/15/17 at 11 :45; Stop 07/16/17 at 11:44 Sodium Chloride 250 ml @ 0 mls/hr ONCE PRN IV VAGAL REPONSE; Start 07/15/17 at 11:30; Stop 07/16/17 at 11:29 Sodium Chloride (NS Flush) 2 ml BID IV FLUSH Last administered on 07/14/17at 23: 42; Start 07/14/17 at 21:00 A/P Assessment and Plan A/P - chest pain with minimal troponin elevation s/p cardiac cath with : 1. Mild to moderate 3-vessel coronary artery disease / Right dominant system./ IFR and FFR measurements of the ostial LAD and ostial left circumflex overall showing absence of hemodynamically significant disease in these regions./ Normal left ventricular function with an estimated ejection fraction of 60 percent. will check d-dimer to r/o PE and will proceed with V/Q scan if it's elevated- d /w . -hypothyroidism with elevated TSH- patient is noncompliant with her levothyroxine. will resume. she needs a close f/u with her PCP and TSH monitoring and this was d/w the patient. Discharge Planning dc home within the next 24 hrs- if stable PE has been ruled out. d/w . Crystal Barrientos MD Jul 15, 2017 12:18
[2017-07-15] MEDS ORDERED: ASPI-516 CHEW (12:27)
[2017-07-15] MEDS ORDERED: LEVO200T4 PO (12:27)
[2017-07-15] MEDS: SODIUM CHLOR 0.9% 1000 ML INJ 1,000 ML IV SCH (14:00)
--- NOTE | 2017-07-15 17:01 | EKG ---
Date Performed: 07/14/2017 Time Performed: 20:51:06 PTAGE: 51 years EKG: Sinus rhythm POSSIBLE LEFT ATRIAL ENLARGEMENT MODERATE T-WAVE ABNORMALITY, CONSIDER ANTEROLATERAL ISCHEMIA ABNORM AL ECG Since PREVIOUS TRACING , no significant change noted PREVIOUS TRACIN07/14/2017 17.36 DOCTOR: Barbie Hogan Interpretating Date/Time 07/15/2017 17:01:10
--- NOTE | 2017-07-15 17:01 | EKG ---
Date Performed: 07/14/2017 Time Performed: 17:36:18 PTAGE: 51 years EKG: Sinus rhythm MODERATE T-WAVE ABNORMALITY, CONSIDER ANTEROLATERAL ISCHEMIA ABNORMAL ECG NO PREVIOUS TRACING DOCTOR: Barbie Hogan Interpretating Date/Time 07/15/2017 17:00:33
--- NOTE | 2017-07-15 17:02 | EKG ---
Date Performed: 07/15/2017 Time Performed: 00:06:23 PTAGE: 51 years EKG: Sinus rhythm WITH OCCASIONAL VENTRICULAR PREMATURE COMPLEXES POSSIBLE LEFT ATRIAL ENLARGEMENT ST DEVIATION AND MO DERATE T-WAVE ABNORMALITY, CONSIDER ANTEROLATERAL ISCHEMIA ABNORMAL ECG Since PREVIOUS TRACING , no significant change noted PREVIOUS TRACIN07/14/2017 20.51 DOCTOR: Barbie Hogan Interpretating Date/Time 07/15/2017 17:01:50
[2017-07-15] MEDS: ASPIRIN 325 MG TAB PO SCH (18:17)
[2017-07-15] MEDS ORDERED: OMEP20TA93 PO (19:49)
[2017-07-15] MEDS ORDERED: HYDR-3366 PO (19:49)
[2017-07-15] MEDS ORDERED: PANTOPRAZOLE SOD 20 MG DELAYED RELEASE TAB PO PRN (21:15)
[2017-07-15] MEDS ORDERED: ACETAMINOPHEN/HYDROcodone 325 MG/10 MG TAB PO PRN (21:15)
[2017-07-16] VITALS (16 sets, daily range): BP systolic 130–157; BP diastolic 63–86; PULSE 56–94; RESP 16; TEMP 98.5–98.8; O2SAT 98–100
[2017-07-16] MEDS: SODIUM CHLOR 0.9% 1000 ML INJ 1,000 ML IV SCH (03:20)
[2017-07-16 04:55] LABS: BICARBONATE 23.9 MEQ/L (21.0-32.0); CALCIUM 8.5 MG/DL (8.5-10.1); CREATININE 0.97 MG/DL (0.50-1.00)
[2017-07-16] MEDS: LEVOTHYROXINE SODIUM 25 MCG TAB PO SCH (06:00)
[2017-07-16] MEDS: LEVOTHYROXINE SODIUM 200 MCG TAB PO SCH (06:00)
[2017-07-16] MEDS: ASPIRIN 325 MG TAB PO SCH (08:34)
[2017-07-16] MEDS: SODIUM CHLORIDE 0.9% FLUSH 10 ML FLUSH IV FLUSH SCH (08:34)
--- NOTE | 2017-07-16 10:02 | HHI.PR ---
Subjective Remarks Follow-up atypical chest pain July 16, 2017-patient seen and examined, denies any chest pain, shortness of breath or dizziness. Objective Vitals Vital Signs Date Time Temp Pulse Resp B/P (MAP) Pulse Ox O2 Delivery O2 Flow Rate FiO2 07/16/17 08:00 98.5 90 16 138/63 (88) 100 07/16/17 08:00 88 07/16/17 06:00 66 07/16/17 05:00 84 07/16/17 04:00 66 07/16/17 04:00 98.7 90 16 154/69 (97) 100 07/16/17 03:00 56 07/16/17 02:00 60 07/16/17 01:00 72 07/16/17 00:00 70 07/15/17 23:00 72 07/15/17 23:00 98.7 90 16 151/79 (103) 100 07/15/17 22:00 74 07/15/17 21:00 86 07/15/17 20:00 82 07/15/17 19:51 95 07/15/17 19:00 104 07/15/17 19:00 98.6 83 16 143/79 (100) 98 07/15/17 15:00 98.3 67 18 136/92 (107) 98 07/15/17 12:30 98.3 67 18 160/85 (110) 96 07/15/17 12:00 98.7 67 18 159/78 (105) 96 07/15/17 10:41 99 Nasal Cannula 2.00 I/O 07/15/17 07/15/17 07/15/17 07/16/17 07/16/17 07/16/17 07:00 15:00 23:00 07:00 15:00 23:00 Intake Total 480 ml 680 ml Output Total 700 ml 620 ml Balance -220 ml 60 ml Intake Oral 480 ml 680 ml Output Urine Total 700 ml 620 ml # Voids 4 # Bowel Movements 1 0 Result Diagram: 07/14/17 1745 07/16/17 0338 Imaging Last Impressions Chest X-Ray 07/14/17 1737 Signed Impressions: Service Date/Time: July 17:55 - CONCLUSION: No acute disease. There is no evidence of pneumonia. Sanjeev Beltran MD Objective Remarks GENERAL: NAD SKIN: Warm and dry. HEAD: Normocephalic. EYES: No scleral icterus. No injection or drainage. NECK: Supple, trachea midline. No JVD or lymphadenopathy. CARDIOVASCULAR: Regular rate and rhythm without murmurs, gallops, or rubs. RESPIRATORY: Breath sounds equal bilaterally. No accessory muscle use. GASTROINTESTINAL: Abdomen soft, non-tender, nondistended. MUSCULOSKELETAL: No cyanosis, or edema. BACK: Nontender without obvious deformity. No CVA tenderness. Procedures cardiac cath. A/P Problem List: (1) Chest pain ICD Code: R07.9 - Chest pain, unspecified Status: Acute (2) Hypothyroidism ICD Code: E03.9 - Hypothyroidism, unspecified (3) Tobacco abuse ICD Code: Z72.0 - Tobacco use (4) Tobacco abuse counseling ICD Code: Z71.6 - Tobacco abuse counseling Assessment and Plan 51-year-old female with 1- chest pain with minimal troponin elevation s/p cardiac cath with : 1. Mild to moderate 3-vessel coronary artery disease / Right dominant system./ IFR and FFR measurements of the ostial LAD and ostial left circumflex overall showing absence of hemodynamically significant disease in these regions./ Normal left ventricular function with an estimated ejection fraction of 60 percent. Advised on tobacco cessation Continue aspirin Secondary to elevated d-dimer , V/Q scan pending to rule out PE 2-Hypothyroidism with elevated TSH- 2/2 noncompliant with her levothyroxine. Currently on Synthroid 250 mcg daily. she needs a close f/u with her PCP and TSH monitoring Problem Qualifiers (1) Chest pain: Qualified Codes: R07.9 - Chest pain, unspecified Franck Mccall MD Jul 16, 2017 10:02
[2017-07-16] MEDS ORDERED: LEVO.2 PO (10:27)
[2017-07-16] MEDS ORDERED: SYNT25TA PO (10:27)
--- NOTE | 2017-07-16 10:29 | HHI.DS ---
Discharge Summary Admission Date Jul 14, 2017 at 18:40 Discharge Date: Jul 16, 2017 Admitting Diagnosis chest pain (1) Chest pain ICD Code: R07.9 - Chest pain, unspecified Status: Acute (2) Hypothyroidism ICD Code: E03.9 - Hypothyroidism, unspecified (3) Tobacco abuse ICD Code: Z72.0 - Tobacco use (4) Tobacco abuse counseling ICD Code: Z71.6 - Tobacco abuse counseling Procedures cardiac cath. CBC/BMP: 07/14/17 1745 07/16/17 0338 Significant Findings Laboratory Tests Test 07/14/17 17:45 07/14/17 18:26 07/14/17 20:50 07/14/17 23:40 Monocytes (%) (Auto) 8.1 % (0.0-8.0) Activated Partial Thromboplast Time 21.2 SEC (24.3-30.1) Creatinine 1.18 MG/DL (0.50-1.00) Calcium Level 7.8 MG/DL (8.5-10.1) Chloride Level 108 MEQ/L (98-107) Estimat Glomerular Filtration Rate 48 ML/MIN (>89) Total Creatine Kinase 197 U/L (26-192) 198 U/L (26-192) Troponin I 0.06 NG/ML (0.02-0.05) Test 07/15/17 08:33 07/15/17 12:35 07/16/17 03:38 Troponin I LESS THAN 0.02 NG/ML Thyroid Stimulating Hormone 3rd Gen GREATER THAN 100.000 uIU/ML D-Dimer Quantitative (PE/DVT) 0.65 MG/L FEU (0.00-0.50) Random Glucose 123 MG/DL (74-106) Chloride Level 109 MEQ/L (98-107) Estimat Glomerular Filtration Rate 61 ML/MIN (>89) Free Thyroxine 0.45 NG/DL (0.76-1.46) Imaging Last Impressions Chest X-Ray 07/14/17 6541 Signed Impressions: Service Date/Time: July 17:55 - CONCLUSION: No acute disease. There is no evidence of pneumonia. Sanjeev Beltran MD PE at Discharge GENERAL: NAD SKIN: Warm and dry. HEAD: Normocephalic. EYES: No scleral icterus. No injection or drainage. NECK: Supple, trachea midline. No JVD or lymphadenopathy. CARDIOVASCULAR: Regular rate and rhythm without murmurs, gallops, or rubs. RESPIRATORY: Breath sounds equal bilaterally. No accessory muscle use. GASTROINTESTINAL: Abdomen soft, non-tender, nondistended. MUSCULOSKELETAL: No cyanosis, or edema. BACK: Nontender without obvious deformity. No CVA tenderness. Hospital Course While in hospital, patient was treated for: 1- chest pain with minimal troponin elevation s/p cardiac cath with : 1. Mild to moderate 3-vessel coronary artery disease / Right dominant system./ IFR and FFR measurements of the ostial LAD and ostial left circumflex overall showing absence of hemodynamically significant disease in these regions./ Normal left ventricular function with an estimated ejection fraction of 60 percent. Advised on tobacco cessation Continue aspirin Secondary to elevated d-dimer , V/Q scan pending to rule out PE 2-Hypothyroidism with elevated TSH- 2/2 noncompliant with her levothyroxine. Currently on Synthroid 250 mcg daily. she needs a close f/u with her PCP and TSH monitoring Pt Condition on Discharge: Good Discharge Disposition: Discharge Home Discharge Time: <= 30 minutes Discharge Instructions DIET: Follow Instructions for: Heart Healthy Diet Activities you can perform: Regular-No Restrictions Follow up Referrals: PCP Follow-up New Medications: Aspirin (Aspirin) 81 Mg Chew 81 MG CHEW DAILY for cad for 30 Days, #30 TAB 0 Refills Levothyroxine (Synthroid) 25 Mcg Tab 25 MCG PO DAILY for Thyroid, #30 TAB 3 Refills Levothyroxine (Synthroid) 200 Mcg Tab 200 MCG PO DAILY for Thyroid, #30 TAB 3 Refills Continued Medications: Levothyroxine (Levothyroxine) 200 Mcg Tab 225 MCG PO DAILY for Thyroid for 15 Days, TAB 0 Refills (This prescription has been renewed) Omeprazole (Omeprazole) 20 Mg Tab 20 MG PO DAILY, #30 TAB 0 Refills Discontinued Medications: Hydrocodone-Acetaminophen ([place]) 10-325 Mg Tab 1 TAB PO Q6H PRN for PAIN, TAB 0 Refills Franck Mccall MD Jul 16, 2017 10:29
--- NOTE | 2017-07-16 10:51 | RADRPT ---
EXAM DATE/TIME: 07/16/2017 10:08 [facility] COMPARISON: No previous studies available for comparison. INDICATIONS : Chest pain. MEDICAL HISTORY : None. SURGICAL HISTORY : None. ENCOUNTER: Subsequent ACUITY: 2 days PAIN SCORE: 110 LOCATION: Bilateral chest FINDINGS: A single view of the chest demonstrates the lungs to be symmetrically aerated without evidence of mas s, infiltrate or effusion. The cardiomediastinal contours are unremarkable. Osseous structures are intact. CONCLUSION: No acute disease. Jamaal Baker MD FACR on July 16, 2017 at 10:50 Board Certified Radiologist. This report was verified electronically.
--- NOTE | 2017-07-16 14:37 | RADRPT ---
EXAM DATE/TIME: 07/16/2017 13:21 [facility] COMPARISON: CHEST SINGLE AP, July 16, 2017, 10:08. INDICATIONS : Chest pain with shortness of breath. DOSE: 0.83 mCi Tc99m DTPA 8.5 mCi Tc99m MAA MEDICAL HISTORY : Hypothyroidism. Hypertension. Gastroesophageal reflux disease. SURGICAL HISTORY : Hysterectomy. Cholecystectomy. oophorectomy. ENCOUNTER: Initial ACUITY: 2 days PAIN SCALE: 0/10 LOCATION: Left chest TECHNIQUE: Following five minutes of tidal breathing of DTPA aerosol, planar images of the lungs were performed in eight projections. The patient was then injected with MAA, and eight-view perfusion scan was perf ormed. FINDINGS: There is a homogeneous pattern of aerosol delivery to the periphery of both lungs. No focal ventilat ory defects are seen. The perfusion lung scan demonstrates a homogenous pattern of uptake in both lungs. No segmental or s ubsegmental defects are seen. CONCLUSION: Low probability scan for pulmonary embolism Bernabe Sutherland MD on July 16, 2017 at 14:34 Board Certified Radiologist. This report was verified electronically.
== END 2017-07-16 18:45 | disposition home or self-care (01) ==
LOC: NEPD 17:00 → NEDA 18:40 → NEPHCDU 19:43 → HCIS 07-15 10:57 → HCPC 07-15 11:56
PROVIDERS: ADMIT Hospitalist; ATTEND Hospitalist
DX: I25.10 Atherosclerotic heart disease of native coronary artery without angina pectoris (principal); I10 Essential (primary) hypertension; R94.31 Abnormal electrocardiogram [ECG] [EKG]; R79.1 Abnormal coagulation profile; K21.9 Gastro-esophageal reflux disease without esophagitis; E03.9 Hypothyroidism, unspecified; F17.210 Nicotine dependence, cigarettes, uncomplicated; F12.90 Cannabis use, unspecified, uncomplicated; Z87.442 Personal history of urinary calculi; Z91.19 Patient's noncompliance with other medical treatment and regimen; Z90.710 Acquired absence of both cervix and uterus; Z88.1 Allergy status to other antibiotic agents
CPT/HCPCS: 71045; 71046; 78582; 80048; 80307; 82550; 82552; 83735; 84439; 84443; 84484; 85002; 85025; 85379; 85610; 85730; 93005; 93458; 93571; 96361; 96374; 96375; 99152; 99153; 99285; A9540; A9567; C1760; C1769; C1887; C1893; G0269; G0378; J0153; J0360; J1200; J1644; J2250; J2270; J2405; J2930; J3010; J7030; Q9967

== ENCOUNTER 2017-07-27 23:07 | Emergency (ER) | payer MEDICARE ==
[~2017-07-27 23:07] MED LIST: ASPI-516 CHEW; LEVO.2 PO; LEVO200T4 PO; OMEP20TA93 PO; SYNT25TA PO
== END 2017-07-28 00:06 | disposition left against medical advice (07) ==
LOC: NED 23:07
DX: R07.9 Chest pain, unspecified (principal); Z53.21 Procedure and treatment not carried out due to patient leaving prior to being seen by health care provider
CPT/HCPCS: 99281